=== PATIENT | female | born 2000 | race Two or more races ===

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

== ENCOUNTER 2018-02-06 16:15 | Emergency (ER) | payer SELFPAY ==
[2018-02-06] MEDS ORDERED: ONDANSETRON 4 MG/2 ML VIAL IVPUSH ONE (16:27)
[2018-02-06] MEDS ORDERED: SODIUM CHLORIDE 1,000 ML IV STA ×2 (16:27→20:29)
--- NOTE | 2018-02-06 16:29 | PDOC ---
Rapid Medical Evaluation Time Seen by Provider: 02/06/18 16:23 Medical Evaluation: Allergies Allergy/AdvReac Type Severity Reaction Status Date / Time No Known Allergies Allergy Verified 09/25/17 01:00 02/06/18 16:24 I have performed a brief in-person evaluation of this patient. The patient presents with a chief complaint of: abdominal pain x6 months Pertinent physical exam findings: RLQ tenderness with rebound I have ordered the following: labs, urine, CT The patient will proceed to the ED for further evaluation. Discharge Disposition - Diagnosis Abdominal pain - Referrals - Patient Instructions - Post Discharge Activity
[2018-02-06 16:30] VITALS: TEMP 98.3; BMI 21.2
[2018-02-06] MEDS ORDERED: ONDANSETRON 4 MG/2 ML VIAL ONE (17:01)
[2018-02-06 17:25] LABS: BASO % 0.6 % (0-2.0); EOS % 0.1 % (0-4.5); HEMATOCRIT 37.3 % (32.4-45.2); HEMOGLOBIN 12.9 GM/dL (10.7-15.3); MCHC 34.5 g/dl (32.0-36.0); MEAN CELL VOLUME 84.2 fl (80-96); MEAN PLT VOLUME 11.5 fl (7.5-11.1); MONO % 5.4 % (3.8-10.2); NEUT % 79.9 % (42.8-82.8); PLATELET COUNT 161 K/MM3 (134-434); RBC 4.44 M/mm3 (3.60-5.2); RDW 13.5 % (11.6-15.6); WHITE BLOOD COUNT 6.4 K/mm3 (4.0-10.0)
[2018-02-06 17:39] LABS: URINE APPEARANCE CLEAR; URINE BILIRUBIN NEGATIVE (<2.0 mg/dL); URINE COLOR YELLOW; URINE GLUCOSE (UA) NEGATIVE (NEGATIVE); URINE KETONE 2+ (NEGATIVE); URINE LEUK ESTERASE TRACE (NEGATIVE); URINE NITRITE NEGATIVE (NEGATIVE); URINE PROTEIN NEGATIVE (NEGATIVE); URINE UROBILINOGEN NEGATIVE mg/dL (0.2-1.0)
--- NOTE | 2018-02-06 17:44 | PDOC ---
History of Present Illness - General Chief Complaint: Pain Stated Complaint: VOMITING Time Seen by Provider: 02/06/18 16:23 - History of Present Illness Initial Comments: 02/06/18 17:31 17 yo F with h/o recurrent emesis, and daily marijuanna use, who p/w abdominal pain and nausea/vomitting. Patient reports stable, ongoing non bilious, non bloody emesis and retching x 3 days. States that initial emesis was bilious but now clear, and scant. Emesis x 5 per day. Denies hematemesis.Reports diffuse, with upper predominant, burning abdominal pain, worse with pressure and positional. Also reports retrosternal burning aggravated with vomit. Last bowel movement yesterday and loose stool. + inability to tolerate PO intake. Recently evaluated at [facility] over the past 3 days and treated with IV fluids, anti-emetics, and neg abdominal U/S x 2. Pt. was told emesis is marijuana induced. Denies trauma to abdomen. Patient has been experiencing recurrent episodes of emesis x 6 months, typically at time of menstruation. Patient currently menstruating. Denies OTC anti-emetic or ambulatory medication. Denies F/C, SOB, diarrhea, constipation, urinary complaints, vaginal burning/ itching/discharge, weakness, lightheadedness, sensory changes. PMHx: as noted above. Does not f/w GI. Patient denies h/o endsocopy, or abdominal surgery/procedures. ROS: as noted above SHx: Daily marijuanna use for 5 years ( last use 3 days ago). Social Etoh, with last alcoholic drink 2-3 weeks ago. 1-2 cigarettes per day off an on for months. Allergies: NKDA Past History - Past Medical History Allergies/Adverse Reactions: Allergies Allergy/AdvReac Type Severity Reaction Status Date / Time No Known Allergies Allergy Verified 02/06/18 16:25 Home Medications: Ambulatory Orders NK [No Known Home Medication] 09/25/17 COPD: No - Reproductive History Is Patient Now?: No (#): 0 Para: 0 Therapeutic (s) & number: No Spontaneous : 0 - Immunization History Immunization Up to Date: No - Suicide/Smoking/Psychosocial Hx Smoking History: Current some day smoker Have you smoked in the past 12 months: Yes Information on smoking cessation initiated: No Hx Alcohol Use: No Drug/Substance Use Hx: Yes (LANE) Substance Use Type: Alcohol Review of Systems - Review of Systems Comments:: 02/06/18 17:44 GENERAL/CONSTITUTIONAL: No fever or chills. No weakness. HEAD, EYES, EARS, NOSE AND THROAT: No change in vision. No ear pain or discharge. No sore throat. CARDIOVASCULAR: No chest pain or shortness of breath RESPIRATORY: No cough, wheezing, or hemoptysis. GASTROINTESTINAL: +nausea, vomiting, and abdominal pain. No diarrhea or constipation. GENITOURINARY: . No dysuria, frequency, or change in urination. MUSCULOSKELETAL: No joint or muscle swelling or pain. No neck or back pain. SKIN: No rash NEUROLOGIC: No headache, vertigo, loss of consciousness, or change in strength/ sensation. ENDOCRINE: No increased thirst. No abnormal weight change HEMATOLOGIC/LYMPHATIC: No anemia, easy bleeding, or history of blood clots. ALLERGIC/IMMUNOLOGIC: No hives or skin allergy. *Physical Exam - Vital Signs Last Vital Signs Temp Pulse Resp BP Pulse Ox 98.3 F 72 18 128/89 100 02/06/18 16:25 02/06/18 16:25 02/06/18 16:25 02/06/18 16:25 02/06/18 16:25 - Physical Exam Comments: 02/06/18 17:44 GENERAL: Awake, alert, and fully oriented, in no acute distress HEAD: No signs of trauma, normocephalic, atraumatic EYES: PERRLA, EOMI, sclera anicteric, conjunctiva clear ENT: Dry mucous membranes. Auricles normal inspection, hearing grossly normal, nares patent, oropharynx clear without exudates. NECK: Normal ROM, supple, no lymphadenopathy, JVD, or masses LUNGS: No distress, speaks full sentences, clear to auscultation bilaterally HEART: Regular rate and rhythm, normal S1 and S2, no murmurs, rubs or gallops, peripheral pulses normal and equal bilaterally. ABDOMEN: Soft, Upper quadrant> lower quadrant abdominal ttp, normoactive bowel sounds. No guarding, no rebound. No masses. Neg CVA ttp. EXTREMITIES : Normal inspection, Normal range of motion, no edema. No clubbing or cyanosis. SKIN: Warm, Dry, normal turgor, no rashes or lesions noted ED Treatment Course - LABORATORY CBC & Chemistry Diagram: 02/06/18 17:10 02/06/18 17:10 - ADDITIONAL ORDERS Additional order review: 02/06/18 17:10 RBC 4.44 MCV 84.2 MCHC 34.5 RDW 13.5 MPV 11.5 H Neutrophils % 79.9 Lymphocytes % 14.0 D Monocytes % 5.4 Eosinophils % 0.1 Basophils % 0.6 - Medications Given in the ED: ED Medications Discontinued Medications Generic Name Dose Route Start Last Admin Trade Name Jourdan PRN Reason Stop Dose Admin Sodium Chloride 1,000 mls @ 1,000 mls/hr 02/06/18 16:27 02/06/18 17:12 Normal Saline - IV 02/06/18 17:26 1,000 mls/hr ASDIR STA Administration Ondansetron HCl 4 mg 02/06/18 16:27 02/06/18 17:13 Zofran Injection IVPUSH 02/06/18 16:28 4 mg ONCE ONE Administration Medical Decision Making - Medical Decision Making 02/06/18 17:48 7 yo F with h/o recurrent emesis, and daily marijuanna use, who p/w abdominal pain and nausea/vomitting. VSS, AF. Will provide adequate fluid resuscitation and anti-emetic control. Patient arrives from [facility]. CT AP pending to r/o intrabdominal process, obstruction, infection. Likely marijuanna induced emesis.Differnetial also includes colitis, gastroenteritis, dyspepsia 2/2 esophagitis, gastritis, biliary disease. Low suspicion of PUD, Borhaaves, Katrin Jimbo, pancreatitis, or SBO. ED Course: CBC, CMP, UA, Urine Preg, lipase CT AP NS 1 L , Zofran 02/06/18 17:56 Patient with continued emesis. Reglan 10 mg, Pepcid 20 mg. 02/06/18 20:27 CT AP: Unremarkable. No acute pathology. 02/06/18 20:28 UA: 3+ Blood, 21 RBC K+2.9 02/06/18 20:30 NS 1 L, KCL, Maloox, Carafate 02/06/18 21:11 Patient tolerating PO intake. stable for d/c with return precautions. Advised to f/u with PMD. *DC/Admit/Observation/Transfer Diagnosis at time of Disposition: Abdominal pain with vomiting - Referrals Referrals: Chase Middleton MD [Staff Physician] - - Patient Instructions Printed Discharge Instructions: DI for Vomiting -- Adult Additional Instructions: Please return to the emergency department with any new or worsening symptoms or concerns. Please follow up with your primary care physician within 72 hours. Please follow up with gastroenterology within one week. - Post Discharge Activity - Attestations Physician Attestion: 02/06/18 17:55 I attest to the information provided in this note.
[2018-02-06 17:55] LABS: ALBUMIN 4.2 g/dl (3.4-5.0); ANION GAP 12 (8-16); BLOOD UREA NITROGEN 5 mg/dL (7-18); CALCIUM 8.9 mg/dL (8.5-10.1); CHLORIDE 106 mmol/L (98-107); CO2 22 mmol/L (21-32); GLUCOSE,RANDOM 91 mg/dL (74-106); SODIUM 140 mmol/L (136-145)
[2018-02-06] MEDS ORDERED: METOCLOPRAMIDE HCL INJECTION 10 MG/2 ML VIAL IVPUSH ONE (17:56)
[2018-02-06] MEDS ORDERED: FAMOTIDINE 20 MG/50 ML IVPB 20 MG/50 ML MG IVPB ONE ×2 (17:57→18:13)
[2018-02-06] MEDS ORDERED: METOCLOPRAMIDE HCL INJECTION 10 MG/2 ML VIAL ONE (18:13)
[2018-02-06 18:19] LABS: ALK PHOS 57 U/L (45-117); BILIRUBIN,TOTAL 0.6 mg/dL (0.2-1.0); CREATININE 0.7 mg/dL (0.55-1.02); SGOT/AST 13 U/L (15-37); SGPT/ALT 18 U/L (12-78); TOT PROT 7.1 g/dl (6.4-8.2)
[2018-02-06 18:22] LABS: LIPASE 205 U/L (73-393)
[2018-02-06 18:23] LABS: POTASSIUM 2.9 mmol/L (3.5-5.1)
[2018-02-06 18:29] LABS: EPI CELLS FEW /HPF (FEW); URINE MUCUS FEW
[2018-02-06 20:04] VITALS: BP 141/78; PULSE 78
[2018-02-06] MEDS ORDERED: MAG HYDROX/AL HYDROX/SIMETH 30 ML UNIT-DOSE CUP PO ONE (20:29)
[2018-02-06] MEDS ORDERED: SUCRALFATE 1 GM TABLET (FP) PO ONE (20:29)
[2018-02-06] MEDS: KCL 10 MEQ IVPB 10 MEQ/100 ML INFUS.BAG IVPB SCH ×2 (20:30→21:49)
[2018-02-06] MEDS ORDERED: SUCRALFATE 1 GM TABLET (FP) ONE (20:46)
[2018-02-06] MEDS ORDERED: MAG HYDROX/AL HYDROX/SIMETH 30 ML UNIT-DOSE CUP ONE (20:47)
--- NOTE | 2018-02-06 20:49 | PDOC ---
Attending Attestation - Resident Resident Name: Trung Zuniga - ED Attending Attestation I have performed the following: I have examined & evaluated the patient, The case was reviewed & discussed with the resident, I agree w/resident's findings & plan, Exceptions are as noted - HPI HPI: 02/06/18 20:48 agree with resident note. 17yoF w/ marijuana-induced hyperemsis. Pt refuses to believe this and will not stop her daily marijuana use. She is not vomiting in the ER. CTAP by [facility] negative for acute intraabdominal pathology. Labs w/ K+ 2.9, slightly low. EKG no changes. - Physicial Exam PE: 02/06/18 20:49 NAD soft NTND, no guarding , no rebound A&O x 3. - Medical Decision Making 02/06/18 20:49 17yoF w/ hyperemesis 2/2 marijuana use. - DC.
--- NOTE | 2018-02-07 17:50 | EKG ---
Test Reason : Blood Pressure : / mmHG Vent. Rate : 085 BPM Atrial Rate : 085 BPM P-R Int : 140 ms QRS Dur : 084 ms QT Int : 368 ms P-R-T Axes : 063 027 012 degrees QTc Int : 437 ms SINUS RHYTHM WITH MARKED SINUS ARRHYTHMIA T WAVE ABNORMALITY, CONSIDER ANTERIOR ISCHEMIA ABNORMAL ECG NO PREVIOUS ECGS AVAILABLE Confirmed by CHARLOTTE MUSE MD ([id number]) on 02/07/2018 5:49:56 PM Referred By: Confirmed By:CHARLOTTE MUSE MD
== END 2018-02-06 22:07 | disposition home or self-care (01) ==
LOC: JER 16:15
PROC: 3E0337Z Introduction of Electrolytic and Water Balance Substance into Peripheral Vein, Percutaneous Approach (ICD-10-PCS; principal; 2018-02-06)
PROC: 3E033GC Introduction of Other Therapeutic Substance into Peripheral Vein, Percutaneous Approach (ICD-10-PCS; 2018-02-06)
PROC: 3E033GC Introduction of Other Therapeutic Substance into Peripheral Vein, Percutaneous Approach (ICD-10-PCS; 2018-02-06)
PROC: 3E033GC Introduction of Other Therapeutic Substance into Peripheral Vein, Percutaneous Approach (ICD-10-PCS; 2018-02-06)
DX: R11.10 Vomiting, unspecified (principal); R11.2 Nausea with vomiting, unspecified; T40.7X5A Adverse effect of cannabis (derivatives), initial encounter; Y92.038 Other place in apartment as the place of occurrence of the external cause
CPT/HCPCS: 36415; 74177-TC; 80053; 81003; 81015; 83690; 84703; 85025; 87086; 93005; 93010; 99283-25; J7030